=== PATIENT | male | born 1995 | race Caucasian/White ===

== ENCOUNTER 2018-12-24 21:28 | Emergency (ER) | payer OTHER ==
[~2018-12-24] VITALS: Ht 165.1 cm; Wt 52.6 kg
[2018-12-24] MEDS ORDERED: IV NORMAL SALINE 1,000ML 1,000 ML IV ONE (22:15)
[2018-12-24] MEDS ORDERED: KETOROLAC 60 MG/2 ML VIAL. IM ONE (22:15)
[2018-12-24] MEDS ORDERED: KETOROLAC 15 MG/ML VIAL. IV ONE (22:15)
[2018-12-24] MEDS ORDERED: silver sulfADIAZINE 1% CREAM 50GM JAR. TP ONE (22:15)
[2018-12-24] MEDS ORDERED: DIPHTH,PERTUSS(ACELL),TET TOX 0.5 ML DISP.SYRIN. VAX IM ONE (22:15)
[2018-12-24] MEDS ORDERED: HYDR-3165 PO (22:20)
[2018-12-24] MEDS ORDERED: SILV20CR14 TP (22:20)
[2018-12-24] MEDS ORDERED: MORPHINE SULFATE 4 MG/ML DISP.SYRIN. ONE (23:04)
[2018-12-24] MEDS ORDERED: MORPHINE SULFATE 4 MG/ML DISP.SYRIN. IV ONE (23:15)
[2018-12-24 23:43] VITALS: BP 133/86
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
== END 2018-12-25 00:10 | disposition home or self-care (01) ==
LOC: ER 21:28
DX: T21.22XA Burn of second degree of abdominal wall, initial encounter (principal); T22.112A Burn of first degree of left forearm, initial encounter; T24.112A Burn of first degree of left thigh, initial encounter; T31.11 Burns involving 10-19% of body surface with 10-19% third degree burns; X18.XXXA Contact with other hot metals, initial encounter; Y93.89 Activity, other specified; Y92.89 Other specified places as the place of occurrence of the external cause; Y99.0 Civilian activity done for income or pay
CPT/HCPCS: 16020; 90471; 90715; 96374; 96375; 99284; J1885; J2270; J7030